=== PATIENT | male | born 1955 | race Caucasian/White ===

== ENCOUNTER 2016-09-01 08:28 | Outpatient (CLI) | payer OTHER ==
--- NOTE | 2016-09-01 10:26 | DIAGNOSTIC IMAGING REPORT ---
PROCEDURE: MR LOWER EXT JOINT WO CONT-RT INDICATION: SOFT TISSUE MASS RT ANKLE,EVAL FOR GANGLION CYST TECHNIQUE: T1 and STIR sagittal, axial, coronal and coronal-oblique images. COMPARISON: None. FINDINGS: There is a 2.3 x 1.6 x 1.4 cm simple cystic mass anterior to the peroneus brevis tendon. There are trace free additional small cystic structures in the sinus tarsi (largest 1.2 cm) and these may all of these cysts be inter connected. There is a 4 mm subchondral lesion of the talar dome medially. The tibiofibular, anterior and posterior talofibular, calcaneofibular and deltoid ligaments are intact. Normal Achilles tendon. Posterior tibialis, flexor digitorum longus, flexor hallucis longus and peroneus longus tendons are intact. C-shaped cross section of the peroneus brevis suggests a partial tear. Normal extensor tendons. Normal plantar fascia. IMPRESSION: 1. 2.3 x 1.6 x 1.4 cm cystic mass anterior to the peroneus brevis tendon consistent with a ganglion cyst which is contiguous with 2-3 additional small ganglion cysts in the sinus tarsi 2. 4 mm medial talar dome osteochondral lesion 3. Findings suggestive of a peroneus brevis tendon partial tear
== END 2016-09-01 23:00 ==
LOC: MRI SRH 08:28
DX: M67.471 Ganglion, right ankle and foot (principal); M89.9 Disorder of bone, unspecified; M95.8 Other specified acquired deformities of musculoskeletal system